=== PATIENT | female | born 1990 | race Two or more races ===

== ENCOUNTER 2019-10-13 00:32 | Inpatient (IN) | payer SELFPAY ==
[2019-10-13] MEDS ORDERED: Dexamethasone 10 MG/ML SDV IVPUSH ONE (01:04)
[2019-10-13] MEDS ORDERED: Dexamethasone 10 MG/ML SDV ONE (01:06)
--- NOTE | 2019-10-13 01:12 | EDM.PDOC ---
ED HPI GENERAL MEDICAL PROBLEM - General Stated Complaint: SHORTNESS OF BREATH- COVID POSITIVE Time Seen by Provider: 10/13/19 00:50 Source of Information: Reports: Patient History Limitations: Reports: No Limitations - History of Present Illness INITIAL COMMENTS - FREE TEXT/NARRATIVE: 28 yo F presents feeling short of breath. She was admitted for 2 days for testing positive for COVID on Sunday in [place], [place], and then she continued to drive up to Nursery, along with her , two kids, and her niece. She started driving from [place]. Admits to fever, chillls, cough, SOB, chest discomfort. ROS: A 10-point review of systems, other than pertinent positives and negatives as stated per HPI, is otherwise negative Past medical history: No additional pertinent history Past Surgical history: No additional pertinent history Social history: No additional pertinent history Family history: No additional pertinent history PHYSICAL EXAM Pulse ox interpretation: 90% (hypoxic) General: AOx4, GCS = 15, No distress HEENT: dry mucous membrane Neck: supple, no meningismus, no Kernig or Brudzinski Cardiac: S1S2 RRR Respiratory: CTAB, no crackles or rales, no wheezing Abdomen: Soft, nontender, no rebound or guarding, nondistended, no pulsatile mass. Back: nontender Musculoskeletal: NVI distally, no deformity Neuro: No focal deficits, CN 2 - 12 WNL. chest Pain Score (Numeric/FACES): 10 - Related Data Allergies Allergy/AdvReac Type Severity Reaction Status Date / Time No Known Allergies Allergy Verified 10/13/19 01:19 Home Meds: Home Meds . [No Known Home Meds] 10/13/19 [History] ED ROS GENERAL - Review of Systems Review Of Systems: Comprehensive ROS is negative, except as noted in HPI. ED EXAM, GENERAL - Physical Exam Exam: See Below EKG INTERPRETATION EKG Interpretation Comments: 111 Bpm, sinus tach, normal QRS interval, no STEMI. EKG and rhythm strip interpreted by me at 0130 Course - Vital Signs Last Recorded V/S: Last Vital Signs Temp 97.2 F 10/13/19 01:02 Pulse 114 H 10/13/19 01:30 Resp 20 10/13/19 01:30 BP 113/72 10/13/19 01:30 Pulse Ox 96 10/13/19 01:30 - Orders/Labs/Meds Orders: Active Orders 24 hr Category Date Time Status Admission Status [Patient Status] [ADT] Stat ADT 10/13/19 01:38 Ordered Cardiac Monitoring [RC] . DIRECTED Care 10/13/19 00:55 Active EKG Documentation Completion [RC] STAT Care 10/13/19 00:57 Active CULTURE BLOOD [BC] Stat Lab 10/13/19 00:57 Ordered CULTURE BLOOD [BC] Stat Lab 10/13/19 01:50 Results PROCALCITONIN [REF] Stat Lab 10/13/19 00:55 Ordered Azithromycin [Zithromax] 500 mg Med 10/13/19 01:45 Ordered Sodium Chloride 0.9% [Normal Saline (AdvBag)] 250 ml IV ONETIME Enoxaparin [Lovenox] Med 10/13/19 02:20 Ordered 40 mg SUBCUT Q12HR Sodium Chloride 0.9% [Normal Saline] 1,000 ml Med 10/13/19 02:15 Active IV ASDIRECTED Isolation [COMM] Stat Ot 10/13/19 00:56 Active Medication Orders Enoxaparin Sodium (Lovenox) 40 mg SUBCUT Q12HR [facility] Azithromycin 500 mg/ Sodium (Chloride) 250 mls @ 250 mls/hr IV ONETIME TEREZA Sodium Chloride (Normal Saline) 1,000 mls @ 125 mls/hr IV ASDIRECTED [facility] Labs: Laboratory Tests 10/13/19 10/13/19 10/13/19 Range/Units 01:40 01:40 01:40 WBC 7.88 (4.0-11.0) K/uL RBC 4.64 (4.30-5.90) M/uL Hgb 12.1 (12.0-16.0) g/dL Hct 38.1 (36.0-46.0) % MCV 82.1 (80.0-98.0) fL MCH 26.1 L (27.0-32.0) pg MCHC 31.8 (31.0-37.0) g/dL RDW Std Deviation 48.6 (28.0-62.0) fl RDW Coeff of Kermit 16 H (11.0-15.0) % Plt Count 286 (150-400) K/uL MPV 9.70 (7.40-12.00) fL Neut % (Auto) 82.3 H (48.0-80.0) % Lymph % (Auto) 10.7 L (16.0-40.0) % Pender % (Auto) 7.0 (0.0-15.0) % Eos % (Auto) 0.0 (0.0-7.0) % Baso % (Auto) 0.0 (0.0-1.5) % Neut # (Auto) 6.5 H (1.4-5.7) K/uL Lymph # (Auto) 0.8 (0.6-2.4) K/uL Pender # (Auto) 0.6 (0.0-0.8) K/uL Eos # (Auto) 0.0 (0.0-0.7) K/uL Baso # (Auto) 0.0 (0.0-0.1) K/uL Nucleated RBC % 0.0 /100WBC Nucleated RBCs # 0 K/uL INR 0.90 D-Dimer, Quantitative (0.0-0.50) mg/L FEU Lactate (0.20-2.00) mmol/L Sodium 136 (136-145) mmol/L Potassium 4.3 (3.5-5.1) mmol/L Chloride 98 (98-107) mmol/L Carbon Dioxide 29.0 (21.0-32.0) mmol/L BUN 7 (7.0-18.0) mg/dL Creatinine 0.9 (0.6-1.0) mg/dL Est Cr Clr Drug Dosing 65.65 mL/min Estimated GFR (MDRD) > 60.0 ml/min Glucose 120 H (74-106) mg/dL Calcium 8.2 L (8.5-10.1) mg/dL Total Bilirubin 0.4 (0.2-1.0) mg/dL Direct Bilirubin 0.10 (0.0-0.5) mg/dL Indirect Bilirubin 0.30 AST 43 H (15-37) IU/L ALT 71 H (14-63) IU/L Alkaline Phosphatase 96 (46-116) U/L Lactate Dehydrogenase 278 H (81-234) U/L C-Reactive Protein 11.70 H (0.00-0.90) mg/dL Total Protein 8.2 (6.4-8.2) g/dL Albumin 3.4 (3.4-5.0) g/dL Globulin 4.8 H (2.6-4.0) g/dL Albumin/Globulin Ratio 0.7 L (0.9-1.6) 10/13/19 10/13/19 Range/Units 01:40 01:40 WBC (4.0-11.0) K/uL RBC (4.30-5.90) M/uL Hgb (12.0-16.0) g/dL Hct (36.0-46.0) % MCV (80.0-98.0) fL MCH (27.0-32.0) pg MCHC (31.0-37.0) g/dL RDW Std Deviation (28.0-62.0) fl RDW Coeff of Kermit (11.0-15.0) % Plt Count (150-400) K/uL MPV (7.40-12.00) fL Neut % (Auto) (48.0-80.0) % Lymph % (Auto) (16.0-40.0) % Pender % (Auto) (0.0-15.0) % Eos % (Auto) (0.0-7.0) % Baso % (Auto) (0.0-1.5) % Neut # (Auto) (1.4-5.7) K/uL Lymph # (Auto) (0.6-2.4) K/uL Pender # (Auto) (0.0-0.8) K/uL Eos # (Auto) (0.0-0.7) K/uL Baso # (Auto) (0.0-0.1) K/uL Nucleated RBC % /100WBC Nucleated RBCs # K/uL INR D-Dimer, Quantitative 0.27 (0.0-0.50) mg/L FEU Lactate 1.0 (0.20-2.00) mmol/L Sodium (136-145) mmol/L Potassium (3.5-5.1) mmol/L Chloride (98-107) mmol/L Carbon Dioxide (21.0-32.0) mmol/L BUN (7.0-18.0) mg/dL Creatinine (0.6-1.0) mg/dL Est Cr Clr Drug Dosing mL/min Estimated GFR (MDRD) ml/min Glucose (74-106) mg/dL Calcium (8.5-10.1) mg/dL Total Bilirubin (0.2-1.0) mg/dL Direct Bilirubin (0.0-0.5) mg/dL Indirect Bilirubin AST (15-37) IU/L ALT (14-63) IU/L Alkaline Phosphatase (46-116) U/L Lactate Dehydrogenase (81-234) U/L C-Reactive Protein (0.00-0.90) mg/dL Total Protein (6.4-8.2) g/dL Albumin (3.4-5.0) g/dL Globulin (2.6-4.0) g/dL Albumin/Globulin Ratio (0.9-1.6) Meds: Medications Generic Name Dose Route Start Last Admin Trade Name Freq PRN Reason Stop Dose Admin Enoxaparin Sodium 40 mg 10/13/19 02:20 Lovenox SUBCUT Q12HR TEREZA Azithromycin 500 mg/ Sodium 250 mls @ 250 mls/hr 10/13/19 01:45 Chloride IV ONETIME TEREZA Sodium Chloride 1,000 mls @ 125 mls/hr 10/13/19 02:15 Normal Saline IV ASDIRECTED TEREZA Discontinued Medications Generic Name Dose Route Start Last Admin Trade Name Frenohelia PRN Reason Stop Dose Admin Dexamethasone 6 mg 10/13/19 01:04 10/13/19 01:16 Dexamethasone IVPUSH 10/13/19 01:05 6 mg ONETIME ONE Administration Dexamethasone Confirm 10/13/19 01:06 10/13/19 01:37 Dexamethasone Administered 10/13/19 01:07 Not Given Dose 10 mg .ROUTE .STK-MED ONE Lactated Ringer's 1,000 mls @ 125 mls/hr 10/13/19 01:45 Ringers, Lactated IV ASDIRECTED TEREZA Ceftriaxone Sodium/Dextrose 1 50 mls @ 100 mls/hr 10/13/19 01:40 10/13/19 01:50 gm/ Premix IV 10/13/19 02:09 100 mls/hr ONETIME ONE Administration - Re-Assessments/Exams Free Text/Narrative Re-Assessment/Exam: 10/13/19 01:33 Case discussed with , who agrees to admit patient. The hospitalist's documentation supersedes all other documentation on this patient with regard to any conflicts or discrepancies from this point forward. Any emergency conditions have been treated to the ability of the ED prior to admission. Departure - Departure Time of Disposition: 01:41 Disposition: Admitted As Inpatient 64 Condition: Good Clinical Impression: COVID-19, Respiratory failure with hypoxia - Discharge Information *PRESCRIPTION DRUG MONITORING PROGRAM REVIEWED*: Not Applicable *COPY OF PRESCRIPTION DRUG MONITORING REPORT IN PATIENT PIERRE: Not Applicable Instructions: COVID-19 Frequently Asked Questions, COVID-19, COVID-19: How to Protect Yourself and Others - [facility], Prevent the Spread of COVID-19 if You Are Sick - [facility] Referrals: PCP,None [Primary Care Provider] - Sepsis Event Note (ED) - Focused Exam Vital Signs: Vital Signs Temp Pulse Resp BP Pulse Ox 10/13/19 01:30 114 H 20 113/72 96 10/13/19 01:02 97.2 F 124 H 20 140/62 93 L - My Orders Last 24 Hours: My Active Orders 10/13/19 00:55 Cardiac Monitoring [RC] . DIRECTED PROCALCITONIN [REF] Stat 10/13/19 00:56 Isolation [COMM] Stat 10/13/19 00:57 EKG Documentation Completion [RC] STAT CULTURE BLOOD [BC] Stat 10/13/19 01:38 Admission Status [Patient Status] [ADT] Stat 10/13/19 01:45 Azithromycin [Zithromax] 500 mg Sodium Chloride 0.9% [Normal Saline (AdvBag)] 250 ml IV ONETIME 10/13/19 01:50 CULTURE BLOOD [BC] Stat 10/13/19 02:15 Sodium Chloride 0.9% [Normal Saline] 1,000 ml IV ASDIRECTED 10/13/19 02:20 Enoxaparin [Lovenox] 40 mg SUBCUT Q12HR - Assessment/Plan Last 24 Hours: My Active Orders 10/13/19 00:55 Cardiac Monitoring [RC] . DIRECTED PROCALCITONIN [REF] Stat 10/13/19 00:56 Isolation [COMM] Stat 10/13/19 00:57 EKG Documentation Completion [RC] STAT CULTURE BLOOD [BC] Stat 10/13/19 01:38 Admission Status [Patient Status] [ADT] Stat 10/13/19 01:45 Azithromycin [Zithromax] 500 mg Sodium Chloride 0.9% [Normal Saline (AdvBag)] 250 ml IV ONETIME 10/13/19 01:50 CULTURE BLOOD [BC] Stat 10/13/19 02:15 Sodium Chloride 0.9% [Normal Saline] 1,000 ml IV ASDIRECTED 10/13/19 02:20 Enoxaparin [Lovenox] 40 mg SUBCUT Q12HR
[2019-10-13] MEDS ORDERED: cefTRIAXone 1 GM in Premix Bag 1 BAG IV ONE (01:40)
[2019-10-13] MEDS ORDERED: Azithromycin 500 MG in Sodium Chloride 0.9% 250 ML IV SCH (01:45)
[2019-10-13] MEDS ORDERED: Lactated Ringers 1,000 ML IV SCH (01:45)
--- NOTE | 2019-10-13 01:56 | CR ---
Clinical indication : Respiratory failure. FINDINGS: There are patchy infiltrates within both mid and lower lungs. There is likely small amount pleural fluid within the minor fissure on the right. The pulmonary vascular is normal. The heart is normal in size. The bony thorax appears intact. IMPRESSION: Nonspecific patchy infiltrates within both mid and lower lungs. Dictated by Zoltan Blevins MD @ Oct 13 2019 1:53AM Signed by Dr. Zoltan Blevins @ Oct 13 2019 1:54AM
[2019-10-13 02:13] LABS: BLOOD UREA NITROGEN,BUN 7 mg/dL (7.0-18.0); CHLORIDE,CL 98 mmol/L (98-107); GLUCOSE RANDOM 120 mg/dL (74-106); POTASSIUM,K 4.3 mmol/L (3.5-5.1); SODIUM,NA 136 mmol/L (136-145)
[2019-10-13] MEDS ORDERED: Sodium Chloride 0.9% 1,000 ML IV SCH (02:15)
[2019-10-13] MEDS: Enoxaparin 40 MG/0.4 ML Syringe SUBCUT SCH ×2 (02:35→08:52)
[2019-10-13] MEDS ORDERED: Albuterol 8 GM Inhaler INH PRN (02:44)
[2019-10-13] MEDS ORDERED: Acetaminophen 325 MG Tab PO PRN (02:48)
[2019-10-13] MEDS ORDERED: Ondansetron 4 MG/2 ML SDV ONE (02:57)
[2019-10-13] MEDS ORDERED: Ondansetron 4 MG/2 ML SDV IVPUSH ONE (02:59)
[2019-10-13] MEDS: Lactated Ringers 1,000 ML IV SCH ×2 (04:16→12:32)
[2019-10-13] MEDS ORDERED: Dexamethasone 10 MG/ML SDV IVPUSH SCH (09:00)
--- NOTE | 2019-10-13 09:11 | PCM.HP.2 ---
H&P History of Present Illness - General Date of Service: 10/13/19 Admit Problem/Dx: Admission Diagnosis/Problem Admission Diagnosis/Problem Dyspnea Source of Information: Patient History Limitations: Reports: No Limitations - History of Present Illness Initial Comments - Free Text/Narative: 28-year-old female presented to ER complaining of shortness of breath, fevers, chills and cough for the past 5 days. Patient traveled to [place] last week to see her family. On arriving at family's house she discovered that they were sick and eventually diagnosed with COVID-19. On her drive back to [place], patient developed fevers and shortness of breath and was hospitalized in [place], [place] 5 days ago after testing positive for COVID-19. She was hospitalized in [place] for 2 days total. After being discharged she resumed her trip to [place] and yesterday started feeling short of breath again and also developed fevers, nausea and vomiting. Patient reports PMH of gestational diabetes. She smokes 1 cigarette every 2 weeks, drinks alcohol socially and denies any illicit drug use. In [facility] ED, CXR showed b/l patchy infiltrates in mid-lower lung mehta. Patient's COVID19 test was positive. Blood cultures pending. She was started on supplemental oxygen, dexamethasone and given dose of ceftriaxone and azithromycin. Patient admitted for further evaluation and treatment. At bedside this morning, patient continues to complain of shortness of breath and diarrhea. She has been able to tolerate her food. Overall, she reports feeling a better overnight. chest Pain Score (Numeric/FACES): 10 - Related Data Allergies/Adverse Reactions: Allergies Allergy/AdvReac Type Severity Reaction Status Date / Time No Known Allergies Allergy Verified 10/13/19 04:48 Home Medications: Home Meds . 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 Musculoskeletal History: Reports: None Neurological History: Reports: None Psychiatric History: Reports: None Endocrine/Metabolic History: Reports: None Hematologic History: Reports: None Immunologic History: Reports: None Oncologic (Cancer) History: Reports: None Dermatologic History: Reports: None - Infectious Disease History Infectious Disease History: Reports: None - Past Surgical History Head Surgeries/Procedures: Reports: None Social & Family History - Family History Family Medical History: Noncontributory - Tobacco Use Smoking Status *Q: Light Tobacco Smoker Years of Tobacco use: 10 Packs/Tins Daily: 0 Used Tobacco, but Quit: No Tobacco Use Comment: patient rarely smokes, only socially and very rarely Second Hand Smoke Exposure: No - Caffeine Use Caffeine Use: Reports: Coffee - Alcohol Use Days Per Week of Alcohol Use: 1 Number of Drinks Per Day: 0 Total Drinks Per Week: 0 - Recreational Drug Use Recreational Drug Use: No H&P Review of Systems - Review of Systems: Review Of Systems: Comprehensive ROS is negative, except as noted in HPI. Exam - Exam Exam: See Below - Vital Signs Vital Signs: Last Vital Signs Temp 36.3 C 10/13/19 08:23 Pulse 94 10/13/19 08:23 Resp 18 10/13/19 08:23 BP 134/73 10/13/19 08:23 Pulse Ox 93 L 10/13/19 08:37 Weight: 92.533 kg - Exam General: Alert, Oriented, Cooperative, Other (NAD) HEENT: Conjunctiva Clear, EOMI, Hearing Intact, Pupils Equal Neck: Supple, Trachea Midline Lungs: Other (poor inspiratory effort, rales b/l) Cardiovascular: Regular Rate, Regular Rhythm GI/Abdominal Exam: Normal Bowel Sounds, Soft, Non-Tender, No Distention Extremities: Normal Inspection, No Pedal Edema, Other Peripheral Pulses: 2+: Posterior Tibial (L), Posterior Tibial (R) Skin: Warm, Dry, Intact Neurological: Cranial Nerves Intact, Strength Equal Bilateral, Normal Speech, Normal Tone Neuro Extensive - Mental Status: Alert, Oriented x3, Normal Mood/Affect Psychiatric: Alert, Normal Affect, Normal Mood - Patient Data Lab Results Last 24 hrs: Laboratory Results - last 24 hr 10/13/19 10/13/19 10/13/19 Range/Units 01:40 01:40 01:40 WBC 7.88 (4.0-11.0) K/uL RBC 4.64 (4.30-5.90) M/uL Hgb 12.1 (12.0-16.0) g/dL Hct 38.1 (36.0-46.0) % MCV 82.1 (80.0-98.0) fL MCH 26.1 L (27.0-32.0) pg MCHC 31.8 (31.0-37.0) g/dL RDW Std Deviation 48.6 (28.0-62.0) fl RDW Coeff of Kermit 16 H (11.0-15.0) % Plt Count 286 (150-400) K/uL MPV 9.70 (7.40-12.00) fL Neut % (Auto) 82.3 H (48.0-80.0) % Lymph % (Auto) 10.7 L (16.0-40.0) % Ulster % (Auto) 7.0 (0.0-15.0) % Eos % (Auto) 0.0 (0.0-7.0) % Baso % (Auto) 0.0 (0.0-1.5) % Neut # (Auto) 6.5 H (1.4-5.7) K/uL Lymph # (Auto) 0.8 (0.6-2.4) K/uL Ulster # (Auto) 0.6 (0.0-0.8) K/uL Eos # (Auto) 0.0 (0.0-0.7) K/uL Baso # (Auto) 0.0 (0.0-0.1) K/uL Nucleated RBC % 0.0 /100WBC Nucleated RBCs # 0 K/uL INR 0.90 D-Dimer, Quantitative (0.0-0.50) mg/L FEU Lactate (0.20-2.00) mmol/L Sodium 136 (136-145) mmol/L Potassium 4.3 (3.5-5.1) mmol/L Chloride 98 (98-107) mmol/L Carbon Dioxide 29.0 (21.0-32.0) mmol/L BUN 7 (7.0-18.0) mg/dL Creatinine 0.9 (0.6-1.0) mg/dL Est Cr Clr Drug Dosing 65.65 mL/min Estimated GFR (MDRD) > 60.0 ml/min Glucose 120 H (74-106) mg/dL Calcium 8.2 L (8.5-10.1) mg/dL Total Bilirubin 0.4 (0.2-1.0) mg/dL Direct Bilirubin 0.10 (0.0-0.5) mg/dL Indirect Bilirubin 0.30 AST 43 H (15-37) IU/L ALT 71 H (14-63) IU/L Alkaline Phosphatase 96 (46-116) U/L Lactate Dehydrogenase 278 H (81-234) U/L C-Reactive Protein 11.70 H (0.00-0.90) mg/dL Total Protein 8.2 (6.4-8.2) g/dL Albumin 3.4 (3.4-5.0) g/dL Globulin 4.8 H (2.6-4.0) g/dL Albumin/Globulin Ratio 0.7 L (0.9-1.6) COVID-19 (DARNELL) (NEGATIVE) 10/13/19 10/13/19 10/13/19 Range/Units 01:40 01:40 02:50 WBC (4.0-11.0) K/uL RBC (4.30-5.90) M/uL Hgb (12.0-16.0) g/dL Hct (36.0-46.0) % MCV (80.0-98.0) fL MCH (27.0-32.0) pg MCHC (31.0-37.0) g/dL RDW Std Deviation (28.0-62.0) fl RDW Coeff of Kermit (11.0-15.0) % Plt Count (150-400) K/uL MPV (7.40-12.00) fL Neut % (Auto) (48.0-80.0) % Lymph % (Auto) (16.0-40.0) % Ulster % (Auto) (0.0-15.0) % Eos % (Auto) (0.0-7.0) % Baso % (Auto) (0.0-1.5) % Neut # (Auto) (1.4-5.7) K/uL Lymph # (Auto) (0.6-2.4) K/uL Ulster # (Auto) (0.0-0.8) K/uL Eos # (Auto) (0.0-0.7) K/uL Baso # (Auto) (0.0-0.1) K/uL Nucleated RBC % /100WBC Nucleated RBCs # K/uL INR D-Dimer, Quantitative 0.27 (0.0-0.50) mg/L FEU Lactate 1.0 (0.20-2.00) mmol/L Sodium (136-145) mmol/L Potassium (3.5-5.1) mmol/L Chloride (98-107) mmol/L Carbon Dioxide (21.0-32.0) mmol/L BUN (7.0-18.0) mg/dL Creatinine (0.6-1.0) mg/dL Est Cr Clr Drug Dosing mL/min Estimated GFR (MDRD) ml/min Glucose (74-106) mg/dL Calcium (8.5-10.1) mg/dL Total Bilirubin (0.2-1.0) mg/dL Direct Bilirubin (0.0-0.5) mg/dL Indirect Bilirubin AST (15-37) IU/L ALT (14-63) IU/L Alkaline Phosphatase (46-116) U/L Lactate Dehydrogenase (81-234) U/L C-Reactive Protein (0.00-0.90) mg/dL Total Protein (6.4-8.2) g/dL Albumin (3.4-5.0) g/dL Globulin (2.6-4.0) g/dL Albumin/Globulin Ratio (0.9-1.6) COVID-19 (DARNELL) POSITIVE H (NEGATIVE) Result Diagrams: 10/13/19 01:40 10/13/19 01:40 Jose Luis Results Last 24 hrs: Microbiology 10/13/19 01:50 Anaerobic Blood Culture - Final Blood Sepsis Event Note - Evaluation Sepsis Screening Result: No Definite Risk - Focused Exam Vital Signs: Vital Signs Temp Pulse Resp BP Pulse Ox Pulse Ox 10/13/19 08:37 93 L 10/13/19 08:23 36.3 C 94 18 134/73 91 L 10/13/19 05:00 93 L 10/13/19 04:00 36.6 C 97 18 93 L 94 L 10/13/19 03:27 112 H 16 104/61 91 L 10/13/19 03:19 110 H 20 109/52 L 95 10/13/19 02:34 36.2 C 115 H 20 115/61 94 L 10/13/19 01:30 114 H 20 113/72 96 10/13/19 01:02 36.2 C 124 H 20 140/62 93 L Date Exam was Performed: 10/13/19 Time Exam was Performed: 11:20 Problem List Initiated/Reviewed/Updated: Yes Orders Last 24hrs: Active Orders 24 hr Category Date Time Status Admission Status [Patient Status] [ADT] Stat ADT 10/13/19 01:38 Active Ambulate [RC] ASDIRECTED Care 10/13/19 02:42 Active Antiembolic Devices [RC] PER UNIT ROUTINE Care 10/13/19 02:43 Active Cardiac Monitoring [RC] . DIRECTED Care 10/13/19 00:55 Active Overnight Pulse Oximetry [RC] Click to Edit Care 10/13/19 02:41 Active Oxygen Therapy [RC] ASDIRECTED Care 10/13/19 02:41 Active RT Post Treatment Assessment [RC] Click to Edit Care 10/13/19 02:46 Active Telemetry Monitoring [Cardiac Monitoring] [RC] Q8H Care 10/13/19 02:41 Active Vital Signs [RC] Q4H Care 10/13/19 02:40 Active Regular Diet [DIET] Diet 10/13/19 Breakfast Active CULTURE BLOOD [BC] Stat Lab 10/13/19 01:40 Received CULTURE BLOOD [BC] Stat Lab 10/13/19 01:50 Results PROCALCITONIN [REF] Stat Lab 10/13/19 01:40 Received Acetaminophen [Tylenol] Med 10/13/19 02:48 Active 650 mg PO Q6H PRN Albuterol [Ventolin HFA] Med 10/13/19 02:44 Active See Dose Instructions INH Q4H PRN Azithromycin [Zithromax] 500 mg Med 10/14/19 09:00 Ordered Sodium Chloride 0.9% [Normal Saline (AdvBag)] 250 ml IV DAILY Enoxaparin [Lovenox] Med 10/13/19 14:00 Ordered 40 mg SUBCUT Q12HR Lactated Ringers [Ringers, Lactated] 1,000 ml Med 10/13/19 03:00 Active IV ASDIRECTED dexAMETHasone [Dexamethasone] Med 10/14/19 09:00 Active 6 mg IVPUSH DAILY Isolation [COMM] Stat Oth 10/13/19 00:56 Active Pulse Oximetry Continuous Monitoring [OM.PC] Routine Oth 10/13/19 02:41 Ordered SCD [Sequential Compression Device] [OM.PC] Routine Oth 10/13/19 02:43 Ordered Medication Orders Acetaminophen (Tylenol) 650 mg PO Q6H PRN PRN Reason: Pain Albuterol (Ventolin Hfa) 0 gm INH Q4H PRN PRN Reason: Shortness of Breath Dexamethasone (Dexamethasone) 6 mg IVPUSH DAILY TEREZA Enoxaparin Sodium (Lovenox) 40 mg SUBCUT Q12HR TEREZA Lactated Ringer's (Ringers, Lactated) 1,000 mls @ 100 mls/hr IV ASDIRECTED TEREZA Last Admin: 10/13/19 04:16 Dose: 100 mls/hr Documented by: ALEA Azithromycin 500 mg/ Sodium (Chloride) 250 mls @ 250 mls/hr IV DAILY TEREZA Assessment/Plan Comment:: Assessment and Plan: 1. Acute hypoxic respiratory failure secondary to viral pneumonia: - COVID-19 test positive, isolation precautions. - Continue supplemental oxygen to maintain O2 sat > 92%, albuterol INH q4 PRN, IV azithromycin 500 mg qd and IV dexamethasone 6 mg qd. - Will start HFNC and keep patient in prone position. Will have low threshold to transfer to larger facility if unable to wean down supplemental oxygen. - Blood cultures pending at this time. 2. Transaminitis, mild: - Will monitor and recheck with AM labs. 3. DVT prophylaxis: Lovenox 40 mg subcut BID.
[2019-10-13] MEDS ORDERED: Enoxaparin 40 MG/0.4 ML Syringe SUBCUT SCH (14:00)
[2019-10-13] MEDS ORDERED: Ascorbic Acid 500 MG Tab PO SCH (15:00)
[2019-10-13] MEDS ORDERED: Aspirin 81 MG Tab.Chew PO SCH (15:15)
[2019-10-13] MEDS ORDERED: Famotidine 20 MG Tab PO SCH (15:15)
--- NOTE | 2019-10-13 15:51 | PCM.DCSUM1 ---
Discharge Summary - Hospital Course Free Text/Narrative:: 28-year-old female admitted for acute hypoxic respiratory failure secondary to viral pneumonia. Patient reports history of gestational diabetes. Patient reports driving to [place] last week with , children and niece to visit family. While in [place] she was in contact with sick family members who eventually tested positive for COVID19. Patient then tried to drive home to [place], however, had to be hospitalized on her way in [place], [place] 5 days ago for fevers and shortness of breath. She was found to be positive for COVID19. She was discharged from hospital in [place] two days later and then resumed her drive back to [place] and arrived home this past weekend. Since yesterday, she has been feeling short of breath, had fevers, nausea and vomiting. She then presented to [facility] on 10/13/19. On admission, CXR showed bilateral patchy infiltrates in mid and lower lobes. COVID19 test was positive. Patient given doze of IV azithromycin 500 mg, ceftriaxone and IV dexamethasone 6 mg. Blood cultures pending at this time. On admission, patient was requiring 2 L NC and her oxygen requirement steadily increased and now on 5 L HFNC. Considering patient's increasing oxygen requirement and potential need for anti-viral medication such as Remdesivir, patient accepted for transfer to [facility] in [place], [place] by Dr. Whitaker. Patient transported via ground ambulance. - Discharge Data Discharge Date: 10/13/19 Discharge Disposition: DC/Tfer to Acute Hospital 02 Condition: Fair - Referral to Home Health Primary Care Physician: PCP None - Patient Instructions Diet: Usual Diet as Tolerated Activity: As Tolerated Notify Provider of: Fever, Increased Pain, Swelling and Redness, Drainage, Nausea and/or Vomiting - Discharge Plan *PRESCRIPTION DRUG MONITORING PROGRAM REVIEWED*: Not Applicable *COPY OF PRESCRIPTION DRUG MONITORING REPORT IN PATIENT PIERRE: Not Applicable Home Medications: Home Meds . [No Known Home Meds] 10/13/19 [History] Oxygen Therapy Mode: High Flow Nasal Cannula Patient Handouts: COVID-19 Frequently Asked Questions, COVID-19, COVID-19: How to Protect Yourself and Others - CDC, Prevent the Spread of COVID-19 if You Are Sick - [facility] Referrals: Ted Geller,Clinic [Ordering Only Provider] - Campos Espinosa MD [Physician] - 10/30/19 3:00 pm - Discharge Summary/Plan Comment DC Time >30 min.: No - Patient Data Vitals - Most Recent: Last Vital Signs Temp 36.8 C 10/13/19 10:49 Pulse 93 10/13/19 10:49 Resp 18 10/13/19 10:49 BP 133/71 10/13/19 10:49 Pulse Ox 93 L 10/13/19 12:35 Weight - Most Recent: 92.533 kg Lab Results - Last 24 hrs: Laboratory Results - last 24 hr 10/13/19 10/13/19 10/13/19 Range/Units 01:40 01:40 01:40 WBC 7.88 (4.0-11.0) K/uL RBC 4.64 (4.30-5.90) M/uL Hgb 12.1 (12.0-16.0) g/dL Hct 38.1 (36.0-46.0) % MCV 82.1 (80.0-98.0) fL MCH 26.1 L (27.0-32.0) pg MCHC 31.8 (31.0-37.0) g/dL RDW Std Deviation 48.6 (28.0-62.0) fl RDW Coeff of Kermit 16 H (11.0-15.0) % Plt Count 286 (150-400) K/uL MPV 9.70 (7.40-12.00) fL Neut % (Auto) 82.3 H (48.0-80.0) % Lymph % (Auto) 10.7 L (16.0-40.0) % Greer % (Auto) 7.0 (0.0-15.0) % Eos % (Auto) 0.0 (0.0-7.0) % Baso % (Auto) 0.0 (0.0-1.5) % Neut # (Auto) 6.5 H (1.4-5.7) K/uL Lymph # (Auto) 0.8 (0.6-2.4) K/uL Greer # (Auto) 0.6 (0.0-0.8) K/uL Eos # (Auto) 0.0 (0.0-0.7) K/uL Baso # (Auto) 0.0 (0.0-0.1) K/uL Nucleated RBC % 0.0 /100WBC Nucleated RBCs # 0 K/uL INR 0.90 D-Dimer, Quantitative (0.0-0.50) mg/L FEU Lactate (0.20-2.00) mmol/L Sodium 136 (136-145) mmol/L Potassium 4.3 (3.5-5.1) mmol/L Chloride 98 (98-107) mmol/L Carbon Dioxide 29.0 (21.0-32.0) mmol/L BUN 7 (7.0-18.0) mg/dL Creatinine 0.9 (0.6-1.0) mg/dL Est Cr Clr Drug Dosing 65.65 mL/min Estimated GFR (MDRD) > 60.0 ml/min Glucose 120 H (74-106) mg/dL Calcium 8.2 L (8.5-10.1) mg/dL Total Bilirubin 0.4 (0.2-1.0) mg/dL Direct Bilirubin 0.10 (0.0-0.5) mg/dL Indirect Bilirubin 0.30 AST 43 H (15-37) IU/L ALT 71 H (14-63) IU/L Alkaline Phosphatase 96 (46-116) U/L Lactate Dehydrogenase 278 H (81-234) U/L C-Reactive Protein 11.70 H (0.00-0.90) mg/dL Total Protein 8.2 (6.4-8.2) g/dL Albumin 3.4 (3.4-5.0) g/dL Globulin 4.8 H (2.6-4.0) g/dL Albumin/Globulin Ratio 0.7 L (0.9-1.6) COVID-19 (DARNELL) (NEGATIVE) 10/13/19 10/13/19 10/13/19 Range/Units 01:40 01:40 02:50 WBC (4.0-11.0) K/uL RBC (4.30-5.90) M/uL Hgb (12.0-16.0) g/dL Hct (36.0-46.0) % MCV (80.0-98.0) fL MCH (27.0-32.0) pg MCHC (31.0-37.0) g/dL RDW Std Deviation (28.0-62.0) fl RDW Coeff of Kermit (11.0-15.0) % Plt Count (150-400) K/uL MPV (7.40-12.00) fL Neut % (Auto) (48.0-80.0) % Lymph % (Auto) (16.0-40.0) % Greer % (Auto) (0.0-15.0) % Eos % (Auto) (0.0-7.0) % Baso % (Auto) (0.0-1.5) % Neut # (Auto) (1.4-5.7) K/uL Lymph # (Auto) (0.6-2.4) K/uL Greer # (Auto) (0.0-0.8) K/uL Eos # (Auto) (0.0-0.7) K/uL Baso # (Auto) (0.0-0.1) K/uL Nucleated RBC % /100WBC Nucleated RBCs # K/uL INR D-Dimer, Quantitative 0.27 (0.0-0.50) mg/L FEU Lactate 1.0 (0.20-2.00) mmol/L Sodium (136-145) mmol/L Potassium (3.5-5.1) mmol/L Chloride (98-107) mmol/L Carbon Dioxide (21.0-32.0) mmol/L BUN (7.0-18.0) mg/dL Creatinine (0.6-1.0) mg/dL Est Cr Clr Drug Dosing mL/min Estimated GFR (MDRD) ml/min Glucose (74-106) mg/dL Calcium (8.5-10.1) mg/dL Total Bilirubin (0.2-1.0) mg/dL Direct Bilirubin (0.0-0.5) mg/dL Indirect Bilirubin AST (15-37) IU/L ALT (14-63) IU/L Alkaline Phosphatase (46-116) U/L Lactate Dehydrogenase (81-234) U/L C-Reactive Protein (0.00-0.90) mg/dL Total Protein (6.4-8.2) g/dL Albumin (3.4-5.0) g/dL Globulin (2.6-4.0) g/dL Albumin/Globulin Ratio (0.9-1.6) COVID-19 (DARNELL) POSITIVE H (NEGATIVE) MITCH Results - Last 24 hrs: Microbiology 10/13/19 01:50 Anaerobic Blood Culture - Final Blood Med Orders - Current: Current Medications Acetaminophen (Tylenol) 650 mg PO Q6H PRN PRN Reason: Pain Last Admin: 10/13/19 10:42 Dose: 650 mg Documented by: Albuterol (Ventolin Hfa) 0 gm INH Q4H PRN PRN Reason: Shortness of Breath Ascorbic Acid (Vitamin C) 500 mg PO BID [facility] Aspirin (Aspirin) 81 mg PO DAILY [facility] Dexamethasone (Dexamethasone) 6 mg IVPUSH DAILY [facility] Enoxaparin Sodium (Lovenox) 40 mg SUBCUT Q12HR [facility] Last Admin: 10/13/19 14:16 Dose: 40 mg Documented by: Famotidine (Pepcid) 20 mg PO DAILY [facility] Azithromycin 500 mg/ Sodium (Chloride) 250 mls @ 250 mls/hr IV DAILY [facility] Discontinued Medications Dexamethasone (Dexamethasone) 6 mg IVPUSH ONETIME ONE Stop: 10/13/19 01:05 Last Admin: 10/13/19 01:16 Dose: 6 mg Documented by: Dexamethasone (Dexamethasone) Confirm Administered Dose 10 mg .ROUTE .STK-MED ONE Stop: 10/13/19 01:07 Last Admin: 10/13/19 01:37 Dose: Not Given Documented by: Enoxaparin Sodium (Lovenox) 40 mg SUBCUT Q12HR [facility] Last Admin: 10/13/19 08:52 Dose: Not Given Documented by: Lactated Ringer's (Ringers, Lactated) 1,000 mls @ 125 mls/hr IV ASDIRECTED [facility] Azithromycin 500 mg/ Sodium (Chloride) 250 mls @ 250 mls/hr IV ONETIME [facility] Last Admin: 10/13/19 02:33 Dose: 250 mls/hr Documented by: Ceftriaxone Sodium/Dextrose 1 (gm/ Premix) 50 mls @ 100 mls/hr IV ONETIME ONE Stop: 10/13/19 02:09 Last Admin: 10/13/19 01:50 Dose: 100 mls/hr Documented by: Sodium Chloride (Normal Saline) 1,000 mls @ 125 mls/hr IV ASDIRECTED [facility] Last Admin: 10/13/19 01:50 Dose: 125 mls/hr Documented by: Lactated Ringer's (Ringers, Lactated) 1,000 mls @ 100 mls/hr IV ASDIRECTED [facility] Last Admin: 10/13/19 12:32 Dose: 100 mls/hr Documented by: Ondansetron HCl (Zofran) Confirm Administered Dose 4 mg .ROUTE .STK-MED ONE Stop: 10/13/19 02:58 Last Admin: 10/13/19 03:00 Dose: Not Given Documented by: Ondansetron HCl (Zofran) 4 mg IVPUSH ONETIME ONE Stop: 10/13/19 03:00 Last Admin: 10/13/19 03:01 Dose: 4 mg Documented by:
[2019-10-14] MEDS ORDERED: Dexamethasone 10 MG/ML SDV IVPUSH SCH (09:00)
[2019-10-14] MEDS ORDERED: Azithromycin 500 MG in Sodium Chloride 0.9% 250 ML IV SCH (09:00)
== END 2019-10-13 17:45 | DRG 177 ==
LOC: MW.ED 00:32 → MW.MS 01:38
PROVIDERS: ADMIT Student in an Organized Health Care Education/Training Program; ATTEND Student in an Organized Health Care Education/Training Program
PROC: 8E0ZXY6 Isolation (ICD-10-PCS; principal; 2019-10-13)
DX: U07.1 COVID-19 (principal); J12.89 Other viral pneumonia; J96.01 Acute respiratory failure with hypoxia; F17.210 Nicotine dependence, cigarettes, uncomplicated; R74.8 Abnormal levels of other serum enzymes
CPT/HCPCS: 36415; 71045; 71045-26; 80048; 80076; 83605; 83615; 84145; 84484; 85025; 85379; 85610; 86140; 87040; 93005; 96374; 99285-25; A9270-GY; J0456; J0696; J1100; J1650; J2405; J7030; J7050; J7120; U0002